=== PATIENT | female | born 1955 | race Caucasian/White ===

== ENCOUNTER 2016-12-06 12:56 | Emergency (ER) | payer OTHER ==
[~2016-12-06] VITALS: Ht 162.6 cm; Wt 68.1 kg
[~2016-12-06 12:56] MED LIST: LEVOFLOXACIN750 MG PO; TAMIFLU75 MG PO
[2016-12-06 13:47] LABS: MCH 31.4 PG (29.0-34.0); MCHC 34.4 G/DL (30.0-36.0); MCV 91.1 FL (83-99); PLATELET COUNT 316 K/uL (156-360); RBC DIS.WIDTH-CV 12.3 % (11.8-14.6); RBC DIS.WIDTH-SD 40.7 % (39-53); RED BLOOD COUNT 4.72 M/uL (3.80-5.20); WHITE BLOOD COUNT 11.6 K/uL (4.1-10.2)
[2016-12-06 13:59] LABS: CHLORIDE 109 mEq/L (99-109); POTASSIUM 4.3 mEq/L (3.7-5.4); SODIUM 142 mEq/L (136-147)
[2016-12-06 14:00] LABS: GLUCOSE 96 mg/dL (70-99)
[2016-12-06 14:02] LABS: ADD MIUA? YES; BILIRUBIN NEGATIVE; BLOOD TRACE; COLOR YELLOW ((YELLOW)); GLUCOSE (STRIP) NEGATIVE; KETONES NEGATIVE; LEUKOCYTES MODERATE; NITRITE POSITIVE; PROTEIN (STRIP) NEGATIVE; SPECIFIC GRAVITY 1.019 (1.000-1.030); UROBILINOGEN 0.2 MG/DL (0.2-1.0)
[2016-12-06 14:04] LABS: BASOPHIL COUNT 0.1 K/uL (0-0.1); EOSINOPHIL (%) 0.9 % (0-5); EOSINOPHIL COUNT 0.1 K/uL (0-0.3); GFR ESTIMATE (CALCULATED) > 59 mL/min/; IMMATURE GRANULOCYTE (%) 0.3 % (0.0-0.7); IMMATURE GRANULOCYTE COUNT 0.3 K/uL; LYMPHOCYTE COUNT 4.4 K/uL (1.0-2.8); MONOCYTE (%) 7.3 % (3-12); MONOCYTE COUNT 0.9 K/uL (0-0.8); NEUTROPHIL (%) 53.4 % (45-76); NEUTROPHIL COUNT 6.2 K/uL (1.8-6.4)
[2016-12-06 14:05] LABS: UREA NITROGEN (BUN) 15 mg/dL (9-23)
[2016-12-06 14:12] LABS: TROP-I INTERPRETATION NEGATIVE; TROPONIN-I < 0.01 ng/mL (0.0-0.30)
[2016-12-06 14:34] LABS: BACTERIA 4+; CASTS NONE SEEN /LPF; CRYSTALS NONE SEEN; EPITHELIAL CELLS RARE; MUCUS NONE SEEN; PATHOLOGICAL CAST NONE SEEN; RED BLOOD CELLS 0-5 /HPF (0-5); SMALL ROUND CELL NONE SEEN; UCUL ADDED? YES; WHITE BLOOD CELLS 40-50 /HPF (0-5); YEAST-LIKE CELL NONE SEEN
[2016-12-06 14:52] LABS: ANION GAP 13 MEQ/L (2-14)
[2016-12-06] MEDS ORDERED: CIPRO500 MG PO (15:31)
[2016-12-06 15:50] VITALS: BP 103/79
== END 2016-12-06 16:04 | disposition home or self-care (01) ==
LOC: EME 12:56
PROVIDERS: Emergency Medicine
DX: N39.0 Urinary tract infection, site not specified (principal); F41.9 Anxiety disorder, unspecified; R00.2 Palpitations; J45.909 Unspecified asthma, uncomplicated; F17.200 Nicotine dependence, unspecified, uncomplicated; Z88.0 Allergy status to penicillin; Z88.6 Allergy status to analgesic agent; Z88.8 Allergy status to other drugs, medicaments and biological substances
CPT/HCPCS: 71010; 80048; 81003; 84484; 85025; 87077; 87086; 87186; 93005; 99281; 99284

== ENCOUNTER 2016-12-08 13:07 | Emergency (ER) | payer OTHER ==
[~2016-12-08] VITALS: Ht 156.8 cm; Wt 69.9 kg
[~2016-12-08 13:07] MED LIST changes: +CIPRO500 MG PO
[2016-12-08 14:09] LABS: CHLORIDE 109 mEq/L (99-109); POTASSIUM 4.3 mEq/L (3.7-5.4); SODIUM 140 mEq/L (136-147)
[2016-12-08 14:10] LABS: GLUCOSE 98 mg/dL (70-99)
[2016-12-08 14:12] LABS: ANION GAP 9 MEQ/L (2-14)
[2016-12-08 14:14] LABS: GFR ESTIMATE (CALCULATED) > 59 mL/min/
[2016-12-08 14:15] LABS: UREA NITROGEN (BUN) 10 mg/dL (9-23)
[2016-12-08 14:19] LABS: TROP-I INTERPRETATION NEGATIVE; TROPONIN-I < 0.01 ng/mL (0.0-0.30)
[2016-12-08 16:49] VITALS: BP 113/76
== END 2016-12-08 17:10 | disposition home or self-care (01) ==
LOC: EME → EDBD 13:07 → EME 13:07
PROVIDERS: Emergency Medicine
DX: R00.2 Palpitations (principal); I49.1 Atrial premature depolarization; F41.1 Generalized anxiety disorder; F33.1 Major depressive disorder, recurrent, moderate; F17.200 Nicotine dependence, unspecified, uncomplicated
CPT/HCPCS: 80048; 84484; 90839; 93005; 99281; 99284